=== PATIENT | male | born 1970 | race Caucasian/White ===

== ENCOUNTER 2017-04-22 11:01 | Emergency (ER) | payer BC | END 2017-04-22 12:32 | disposition home or self-care (01) | LOC: FTE 11:01 | DX: R05 Cough (principal) | CPT/HCPCS: 71045; 99283-25 ==

== ENCOUNTER 2018-09-03 09:44 | Day surgery (SDC) | payer BC ==
[2018-09-03] MEDS ORDERED: FENTAnyl 50 MCG/ML VIAL (10:43)
[2018-09-03] MEDS ORDERED: PROPOFOL 20 ML ×2 (10:43→11:51)
[2018-09-03] MEDS ORDERED: ONDANSETRON 4 MG INJ IV (11:00)
== END 2018-09-03 13:42 | disposition home or self-care (01) ==
LOC: GIL 09:44
DX: R19.4 Change in bowel habit (principal); K64.8 Other hemorrhoids; K29.30 Chronic superficial gastritis without bleeding; K21.9 Gastro-esophageal reflux disease without esophagitis
CPT/HCPCS: 43239; 88305; 88312